=== PATIENT | female | born 1995 | race Caucasian/White ===

== ENCOUNTER 2019-07-25 04:11 | Emergency (ER) | payer SELFPAY ==
[~2019-07-25] VITALS: Ht 162.6 cm; Wt 52.3 kg
[~2019-07-25 04:11] MED LIST: BCP
[2019-07-25 04:58] LABS: BASO % 0.3 % (0.0-2.0); EOS # 0.2 (0.0-0.7); EOS % 1.7 % (0-4.0); GRAN # 5.5 (1.4-6.5); GRAN % 58.7 % (42.2-75.2); HEMATOCRIT 38.9 % (37.0-47.0); HEMOGLOBIN 12.7 g/dl (12.5-16.0); LYMPH # 3.1 (1.2-3.4); LYMPH % 33.2 % (20.0-51.0); MEAN CELL VOLUME 89 fl (80.0-100.0); MEAN CORPUSCULAR HEMOGLOBIN 29 pg (27.0-31.0); MEAN CORPUSCULAR HGB CONC 33 g/dl (33.0-37.0); MEAN PLATELET VOLUME 8.7 fl (7.4-10.4); MONO # 0.6 (0.1-0.6); MONO % 5.9 % (1.7-9.3); PLATELET COUNT 359 K/mm3 (130-400); RED BLOOD COUNT 4.36 M/mm3 (4.10-5.30); REDCELL DISTRIBUTION WIDTH-CV 13.2 % (11.5-14.5)
[2019-07-25 05:03] LABS: COLLECTION METHOD CLEAN CATCH
[2019-07-25 05:06] LABS: ALANINE AMINOTRANSFERASE 26 U/L (9-52); ALBUMIN 4.7 gm/dL (3.5-5.0); ALKALINE PHOSPHATASE 80 U/L (50-136); ANION GAP 11 mmol/L (7-16); AST,SGOT 35 U/L (15-37); BILIRUBIN,TOTAL 0.4 mg/dL (0.0-1.0); BLOOD UREA NITROGEN 16 mg/dL (7-17); C-REACTIVE PROTEIN < 0.5 mg/dL (0.0-0.9); CALCIUM 9.6 mg/dL (8.4-10.2); CARBON DIOXIDE 26 mmol/L (22-30); CHLORIDE 102 mmol/L (98-107); CREATININE, serum 0.72 (0.52-1.25); GLUCOSE 114 mg/dL (74-106); LIPASE 105 U/L (23-300); POTASSIUM 4.4 mmol/L (3.4-5.0); SODIUM 139 mmol/L (137-145); TOTAL PROTEIN 8.6 gm/dL (6.4-8.2)
[2019-07-25 05:11] LABS: AMORPHOUS CRYSTAL Present /uL; MUCOUS Present /lpf; PH 6 (5-8); URINE APPEARANCE Cloudy; URINE BACTERIA None Seen /hpf; URINE BILIRUBIN Negative (NEGATIVE); URINE BLOOD Negative (NEGATIVE); URINE COLOR Yellow; URINE GLUCOSE Negative (NEGATIVE); URINE KETONE Negative (NEGATIVE); URINE LEUKOCYTE ESTERASE 1+ (NEGATIVE); URINE NITRATE Negative (NEGATIVE); URINE PROTEIN(semi-quant) Negative (NEGATIVE); URINE UROBILINOGEN Negative (NEGATIVE)
[2019-07-25] MEDS ORDERED: BACTRIM DS 8001 TAB PO ×2 (06:59)
[2019-07-25] MEDS ORDERED: CIPRO 500MG TA500 MG PO (07:04)
[2019-07-25] MEDS ORDERED: ULTRAM 50MG TAB50 MG PO (07:07)
[2019-07-25] MEDS ORDERED: ZOFRAN 4MG T4 MG/TAB PO (07:07)
[2019-07-25 07:27] VITALS: BP 109/59; PULSE 89; TEMP 97.8
== END 2019-07-25 07:27 | disposition home or self-care (01) ==
LOC: COL.ER 04:11
PROVIDERS: Emergency Medicine
DX: N39.0 Urinary tract infection, site not specified (principal); F17.210 Nicotine dependence, cigarettes, uncomplicated; Z90.89 Acquired absence of other organs; Z88.0 Allergy status to penicillin
CPT/HCPCS: A4216; J0696; J1885; J2270; J2405; J7030; Q9967

== ENCOUNTER 2020-11-17 14:37 | Emergency (ER) | payer SELFPAY ==
[~2020-11-17] VITALS: Ht 165.1 cm; Wt 56.8 kg
[~2020-11-17 14:37] MED LIST changes: +BACTRIM DS 8001 TAB PO; +CIPRO 500MG TA500 MG PO; +ULTRAM 50MG TAB50 MG PO; +ZOFRAN 4MG T4 MG/TAB PO
[2020-11-17 14:46] VITALS: BP 178/81; TEMP 98.3
[2020-11-17 15:54] LABS: STREP SCREEN NEGATIVE
[2020-11-17 17:03] VITALS: PULSE 93
== END 2020-11-17 17:03 | disposition home or self-care (01) ==
LOC: COL.ER 14:37
PROVIDERS: Nurse Practitioner
DX: J06.9 Acute upper respiratory infection, unspecified (principal); F17.200 Nicotine dependence, unspecified, uncomplicated; Z20.822 Contact with and (suspected) exposure to COVID-19; Z90.89 Acquired absence of other organs; Z88.0 Allergy status to penicillin
CPT/HCPCS: J1200; J1885